=== PATIENT | male | born 1970 | race Caucasian/White ===

== ENCOUNTER 2022-03-17 05:17 | Emergency (ER) | payer MEDICARE, OTHER ==
[2022-03-17 06:03] LABS: BASOPHIL 0.1 % (0-2); EOSINOPHIL 0 % (0-5); HCT 44.3 % (42.0-52.0); MCH 30.2 pg (25.0-31.0); MCHC 33.9 g/dL (32.0-36.0); MCV 89.1 fL (78.0-100.0); MONOCYTE 3.3 % (0-12); MPV 8.5 fL (6.0-9.5); NRBC 0; PLT 138 K/uL (150-400); RBC 4.97 M/uL (4.70-6.00); RDW 13.9 % (11.5-14.0)
[2022-03-17 06:14] LABS: INR 1.05 (0.9-1.2); PROTHROMBIN TIME 13.4 SECONDS (11.9-13.9)
[2022-03-17 06:15] LABS: PTT 24.9 SECONDS (24.9-34.6)
[2022-03-17 06:25] LABS: ALBUMIN 3.9 g/dL (3.4-5.0); ALKALINE PHOSHATASE 92 U/L (46-116); ALT 40 U/L (16-63); AST 36 U/L (15-37); BILIRUBIN - TOTAL 0.7 mg/dL (0.2-1.0); BUN 15 mg/dL (7-18); BUN/CREAT RATIO (CALC) 20.8 RATIO; CHLORIDE 101 mmol/L (98-107); CO2 (BICARBONATE) 26 mmol/L (21-32); CREATININE 0.72 mg/dL (0.67-1.17); GLOBULIN (CALCULATION) 4.4 g/dL; GLUCOSE 194 mg/dL (74-106); LIPASE >2250 U/L (73-393); TOTAL PROTEIN 8.3 g/dL (6.4-8.2)
[2022-03-17 07:24] LABS: CORONAVIRUS 2019 SARS-COV-2 NEGATIVE (NEGATIVE); INFLUENZA A NAA NEGATIVE (NEGATIVE)
[2022-03-17 08:29] LABS: BILIRUBIN NEGATIVE (NEGATIVE); BLOOD NEGATIVE Ery/uL (NEGATIVE); CLARITY CLEAR (CLEAR); COLOR YELLOW (YELLOW); GLUCOSE (U) 1+ mg/dL (NORMAL); LEUKOCYTES NEGATIVE Leu/uL (NEGATIVE); NITRITE NEGATIVE (NEGATIVE); PROTEIN TRACE (LOW) mg/dL (NEGATIVE)
[2022-03-17 08:35] LABS: ECSTASY (MDMA) NEGATIVE (NEGATIVE); MARIJUANA (THC) NEGATIVE (NEGATIVE); METHADONE NEGATIVE (NEGATIVE); OPIATES POSITIVE (NEGATIVE)
[2022-03-17 08:36] LABS: AMPHETAMINES NEGATIVE (NEGATIVE); BARBITURATES NEGATIVE (NEGATIVE); OXYCODONE POSITIVE (NEGATIVE)
== END 2022-03-17 11:55 | disposition other institution (70) ==
LOC: FER 05:17
PROVIDERS: Internal Medicine
DX: J18.9 Pneumonia, unspecified organism (principal); L03.311 Cellulitis of abdominal wall; K85.90 Acute pancreatitis without necrosis or infection, unspecified; Z88.6 Allergy status to analgesic agent; Z20.822 Contact with and (suspected) exposure to COVID-19
CPT/HCPCS: 36415; 80053; 80305; 81003; 83605; 83690; 84145; 84484; 85025; 85610; 85730; 93005; G0480; J0780; J1170; J2405; J2543; J2550; J3370; J7030; J7050; U0002